=== PATIENT | male | born 1990 | race Caucasian/White ===

== ENCOUNTER 2022-08-11 11:16 | Emergency (ER) | payer MEDICAID, SELFPAY ==
--- NOTE | ~2022-08-11 | US_ITS ---
US abdomen limited 08/11/2022 14:04 Indication: Right upper quadrant pain for 3 months Procedure: High-resolution Limited abdominal ultrasound Comparison: No prior studies for comparison. Findings: The pancreas within normal limits. Liver echotexture is normal without focal mass. Gallblad tom contains stones at the fundus. No gallbladder wall thickening or pericholecystic fluid. No biliar y dilatation. CBD measures 3.5 mm. There is normal directional flow in the portal vein. No sonographi c Salinas's sign. Impression: 1: Gallstones with gallbladder sludge. Reviewed, dictated and finalized at location A. [employer] Impression: 1: Gallstones with gallbladder sludge.
[2022-08-11 11:30] VITALS: BP 123/77; PULSE 66; RESP 16; TEMP 36.6; O2SAT 99
[2022-08-11 12:04] LABS: Basophils Absolute Auto 0.1 K/mm3 (0.0-0.1); Basophils Percent Auto 0.9 % (0.2-1.2); Eosinophils Absolute Auto 0.2 K/mm3 (0-0.3); Eosinophils Percent Auto 2.3 % (0-4.4); Hematocrit 43.7 % (42.0-52.0); Hemoglobin 14.9 g/dL (14.0-18.0); Immature Granulocyte Absolute 0.03 K/mm3 (0.00-0.031); Immature Granulocyte Percent A 0.3 % (0-0.5); Lymphocytes Absolute Auto 1.77 K/mm3 (0.9-3.2); Lymphocytes Percent Auto 17.6 % (18.3-44.2); Mean Corpuscular HGB Conc 34.1 g/dl (32-36); Mean Corpuscular Hemoglobin 28.5 pg (26-34); Mean Corpuscular Volume 83.7 fl (80-100); Mean Platelet Volume 10.3 fl (7.4-10.4); Monocytes Absolute Auto 0.7 K/mm3 (0.1-0.6); Monocytes Percent Auto 7.3 % (2.6-8.5); Neutrophils Absolute Auto 7.2 K/mm3 (1.3-6.7); Neutrophils Percent Auto 71.6 % (45.5-73.1); Platelet Count Result 292 k/mm3 (150-375); Red Blood Count 5.22 M/mm3 (4.6-6.20); Red Cell Distribution Width 12.6 % (11.5-14.5); White Blood Count 10.1 K/mm3 (4.5-10.0)
[2022-08-11 12:10] LABS: Appearance Urine Clear (Clear); Bilirubin Urine 1+ (Negative); Blood Urine Negative (Negative); Color Urine Yellow (Yellow); Glucose Urine UA Negative (Negative); Ketones Urine Trace mg/dL (Negative); Leukocyte Esterase Ur Negative LEU/UL (Negative); Nitrate Urine Negative (Negative); Protein Urine Trace mg/dL (Negative); Specific Grav Ur >= 1.030 (1.001-1.035); Urobilinogen Urine 0.2 mg/dL (<2.0)
[2022-08-11 12:15] LABS: Alanine Aminotransferase 23 U/L (6-50); Albumin Level 4.7 g/dL (3.5-5.1); Alkaline Phosphatase 53 U/L (38-126); Anion Gap 9 mmol/L (8-16); Aspartate Amino Transferase 22 U/L (17-59); Bilirubin,Total 0.9 mg/dL (0.2-1.3); Blood Urea Nitrogen 11 mg/dL (9-20); Calcium 9.4 mg/dL (8.4-10.2); Carbon Dioxide 30 mmol/L (22-30); Chloride 102 mmol/L (98-107); Estimated CRCL calculation 90 ml/min; Estimated Glomerular Filt Rate > 60; Glucose 114 mg/dL (65-110); Lipase 74 U/L (23-300); Mucus Urine Few /lpf; Potassium 4.1 mmol/L (3.4-5.0); RBC Urine 0-2 /hpf (0-2); Sodium 141 mmol/L (137-145); Squamous Epithelial Cell Urine Rare /hpf (Few); WBC Urine 0-3 /hpf
[2022-08-11 12:17] LABS: Add Urine Microscopic? YES
--- NOTE | 2022-08-11 13:05 | ED.ABDPAIN ---
HPI - Abdominal Pain General Chief Complaint: Abdominal Pain Stated Complaint: abd pain, vomiting Time Seen by Provider: 08/11/22 12:52 Source: patient Mode of arrival: ambulatory Limitations: no limitations History of Present Illness HPI narrative: Patient is a 32-year-old male who presents the ED with report of abdominal pain. Patient reports having intermittent right upper quadrant abdominal pain for the last few months. He states pain seems to occur after eating, especially with greasy or fatty foods. He typically experiences nausea and vomiting when the pain occurs. Pain will last for a couple hours before resolving. This morning, patient had a plain bagel and developed severe pain afterwards. He had several episodes of nausea and vomiting this morning, which prompted his presentation. He denies any diarrhea, constipation, urinary symptoms, fever. Related Data Allergies Allergy/AdvReac Type Severity Reaction Status Date / Time No Known Allergies Allergy Verified 08/11/22 11:32 Review of Systems Review of Systems: CONSTITUTIONAL: Denies fever, chills, or sweats. CARDIOVASCULAR: Denies chest pain. RESPIRATORY: Denies dyspnea. GASTROINTESTINAL: Reports right upper quadrant abdominal pain, nausea, vomiting. Denies constipation or diarrhea. GENITOURINARY: Denies dysuria or hematuria. All systems reviewed & are unremarkable except as noted in HPI and below PMFSH Past Medical History Medical History (Updated 08/11/22 @ 14:54 by Joelle Bush PA-C) No pertinent past medical history Surgical History Surgical History (Updated 08/11/22 @ 14:05 by Joelle Bush PA-C) No pertinent past surgical history Social History Social History (Updated 08/11/22 @ 14:05 by Joelle Bush PA-C) Smoking status: Never smoker Exam Narrative: GENERAL: Well appearing, well-nourished, non-toxic, in no acute distress. HEAD: Normocephalic, atraumatic. NECK: Supple. No adenopathy, no masses. RESPIRATORY: Airway patent, respirations nonlabored. Clear to auscultation bilaterally, no rales, rhonchi, wheezing. CARDIOVASCULAR: Regular rate and rhythm without murmurs, rubs, or gallops. Peripheral pulses 2+ and equal bilaterally. ABDOMINAL: Soft, focal tenderness to palpation in epigastric and right upper quadrant abdomen. Nondistended, no hepatosplenomegaly. Normoactive BS. MUSCULOSKELETAL: Moves all extremities. Strength/ROM intact without gross deformities. SKIN: Warm, dry, normal color. No rashes. NEURO: A&O X3. Speech clear. Cranial nerves II-XII grossly intact. Steady gait. No ataxic movements. PSYCHIATRIC: Appropriate mood and affect. Normal interaction. Course Consultations Consultation #1: Discussed case with Dr. Abebe, general surgery, will see patient in office. Emphasized low fat diet. Date: 08/11/22 Vital Signs Vital signs: Vital Signs Temperature 97.9 F 08/11/22 11:30 Pulse Rate 66 08/11/22 11:30 Respiratory Rate 16 08/11/22 11:30 Blood Pressure 123/77 08/11/22 11:30 Pulse Oximetry 99 08/11/22 11:30 Temperature 97.9 F 08/11/22 11:30 Pulse Rate 54 L 08/11/22 13:41 Respiratory Rate 16 08/11/22 11:30 Blood Pressure 115/77 08/11/22 13:41 Pulse Oximetry 97 08/11/22 13:41 MDM - Abdominal Pain MDM Narrative Medical decision making narrative: Patient presented to ED with several month history of intermittent RUQ abdominal pain. Acute worsening today, associated with nausea and vomiting. Vitals stable upon arrival. Afebrile. Minimal leukocytosis of 10.1. Patient did report vomiting this am. Remainder of labs unremarkable. Normal LFTs. UA without signs of infection. RUQ US obtained showing gallstones with gallbladder sludge. No signs of acute cholecystitis at this time. Discussed case with general surgery, will follow patient in office. Advised low-fat diet. No indication for antibiotics at this time. Discussed lab and imaging findings with patient and marlene
[2022-08-11 13:41] VITALS: BP 115/77; PULSE 54; O2SAT 97
[2022-08-11] MEDS: ONDANSETRON INJ 4 MG/2 ML VIAL IV PUSH (14:29)
[2022-08-11] MEDS: MORPHINE SULFATE (*CRX) 4 MG/ML INJ IV PUSH (14:30)
== END 2022-08-11 15:42 | disposition home or self-care (01) ==
PROVIDERS: Emergency Medicine; Emergency Provider Physician Assistant
DX: K80.20 Calculus of gallbladder without cholecystitis without obstruction (principal)
CPT/HCPCS: 36415; 76705; 80053; 81001; 83690; 85025; 96374; 96375; 99284; J2270; J2405

== ENCOUNTER 2022-08-28 08:54 | Outpatient (CLI) | payer MEDICAID, SELFPAY ==
[2022-08-28 09:52] LABS: Alanine Aminotransferase 28 U/L (6-50); Albumin Level 4.5 g/dL (3.5-5.1); Alkaline Phosphatase 50 U/L (38-126); Amylase 95 U/L (30-110); Aspartate Amino Transferase 27 U/L (17-59); Bilirubin,Total 0.6 mg/dL (0.2-1.3); Lipase 87 U/L (23-300)
== END 2022-08-28 08:55 | disposition home or self-care (01) ==
PROVIDERS: Visit Provider Surgery
DX: K80.10 Calculus of gallbladder with chronic cholecystitis without obstruction (principal); Z01.818 Encounter for other preprocedural examination
CPT/HCPCS: 36415; 80076; 82150; 83690; 86850; 86900; 86901

== ENCOUNTER 2022-09-06 00:39 | Day surgery (SDC) | payer MEDICAID, SELFPAY ==
[2022-08-23 09:44] VITALS: BMI 21.0
--- NOTE | 2022-08-23 09:47 | PC.NURSE ---
Addendum entered by Sejal Desouza RN 08/30/22 14:37: PT TO ARRIVE AT 1000 ON 09/06/22 FOR SURGERY AT 1300. Original Note: Report to the Outpatient Waiting Room, entrance under the green pavilion located off [facility], at time 1100 on date 09/07/22. Planned Procedure Time: 1300. Time changes happen often and if your time is changed the preop area will call you the afternoon before. - You and your visitor will be asked to self-screen and do not enter if you have any COVID symptoms. - Only one visitor is requested with a max of two and NO children visitors are allowed at this time. - The patient visitor may be requested to leave or wait in car when not with patient due to distancing restrictions. - A mask is REQUIRED within the hospital. Patients may have clear liquids (water, carbonated beverages, clear teas, apple juice) until 3 hours prior to surgery (1000) with a maximum of 20 ounces. - No food from midnight until time of surgery Take the following medications with a SIP of water the morning of surgery: PAIN PILL IF NEEDED Medications to discontinue per physician: N/A Date to take last dose: N/A Please no make-up, nail nepalese, hairspray, perfume, deodorant, or body powder the day of surgery. No jewelry (including any body piercings) or valuables the day of surgery, leave them at home. Please take a shower or bath the night before, or the morning of, surgery with an antibacterial soap (HIBICLENS). Wear comfortable, loose fitting clothing. - Jewelry must be removed prior to entering the operating room. Rings and piercings that are not removed may be cut off. - The hospital will not accept responsibility for valuables. - Please leave all valuables, including medications, at home the day of surgery. If you are going home after surgery, a licensed trailer driver must drive you home. - NO public transportation without another adult if you receive anesthesia. - We recommend that an adult stay with you for 24 hours following discharge. - We also recommend that you do not drive, make important decision, drink alcoholic beverages, or take any drugs that were not prescribed by your health care provider for at least 24 hours after your discharge time. Follow any additional instructions given to you from your surgeon. If you or anyone in your household have experienced Covid symptoms in the past week, please notify your surgeon or the nurse liaison at the phone number below for possible testing. Telephone instructions given to MAURILIO WISDOM and asked if any additional questions and then verbalized understanding. Patient advised to call surgeon office or pre surgery nurse liaison [phone] if any additional questions.
--- NOTE | 2022-08-30 14:37 | PC.NURSE ---
Pt states no changes in health history or medications since initial interview. New pre-op instructions reviewed with pt. Pt denies further questions at this time.
[2022-09-06] VITALS (8 sets, daily range): BP systolic 112–133; BP diastolic 62–77; PULSE 57–90; RESP 14–18; TEMP 36–36.6; O2SAT 97–100
--- NOTE | 2022-09-06 11:39 | WPDHPUPDATE1 ---
History and Physical Update Update Date/Time: 09/06/22 11:39 History and Physical has been reviewed, including an updated exam of the patient. There are NO changes in the patient's condition. Risks, benefits, and alternatives have been discussed and questions answered. Patient agrees to proceed with procedure.
[2022-09-06] MEDS: KETOROLAC 15 MG/ML VIAL (*BKC) IV PUSH (12:06)
[2022-09-06] MEDS: ACETAMINOPHEN 500 MG TABLET 1000 MG PO (12:06)
--- NOTE | 2022-09-06 12:27 | P.PNAN_ITS ---
Anes - Initial Pre Proc Eval Procedure: Operation Date: 09/06/22 13:00 Proposed Procedures p Laparoscopic Cholecystectomy - Sudhir Abebe MD Date/Time: 09/06/22 12:27 Surgeon: Sudhir Abebe MD Pre Op Diagnosis: chronic cholecystitis with stones Patient Data Age: 32 Gender: M Height: 1.83 m Weight: 70.65 kg Allergies Allergy/AdvReac Type Severity Reaction Status Date / Time No Known Allergies Allergy Verified 09/06/22 11:16 Home Medications Medication Instructions Recorded Confirmed Type hydrocodone 5 mg-acetaminophen 325 1 - 2 tablet PO Q6H PRN pain #15 09/06/22 Rx mg tablet tabs ketorolac 10 mg tablet 10 mg PO Q6H 4 days #16 tabs 09/06/22 Rx Patient hx anesthesia problems: none Family hx anesthesia problems: none Results Review: All pre-operative results and documents have been reviewed as part of the pre- operative evaluation. PMFSH Past Medical History Medical History No pertinent past medical history Surgical History Surgical History Hx of shoulder surgery Right No pertinent past surgical history Social History Social History Smoking status: Current every day smoker Tobacco type: e-cigarettes/vaping Alcohol intake: current Alcohol use details: RARE Substance use: never Substance use type: does not use Living arrangements: alone Spiritual care concerns: No Anes - Eval Final PreProcedure Day of Procedure 09/06/22 12:27 Patient weight: normal Heart: regular rate and rhythm Lungs: decreased breath sounds Airway: Mallampati scale class II Neurological: alert and oriented Last oral intake: >/= 8 hours ASA classification: II Emergent: no Anesthetic plan: proceed Anesthesia type and monitoring: general ETT and standard monitoring Results Review: All pre-operative results and documents have been reviewed as part of the pre- operative evaluation. Informed Consent: The patient's anesthetic plan and its attendant risks and benefits were discussed with the patient/family/POA. Questions were solicited and answers provided to the satisfaction of the patient/family/POA.
[2022-09-06] MEDS: LACTATED RINGERS 1,000 ML 30 ML IV CONT ×2 (12:30→15:12)
--- NOTE | 2022-09-06 13:30 | SUR.PREOP ---
PATIENT UPDATED ON TIME DELAY
[2022-09-06] MEDS: ceFAZolin 2 GM/D5W 50 ML 2 GM/50 ML BAG IVPB (14:05)
[2022-09-06] MEDS: BUPIVACAINE/EPINEPHRINE 0.5% 30 ML VIAL INFILTRATE (14:09)
--- NOTE | 2022-09-06 14:47 | W.PM.PROC2 ---
Procedure Note - Detailed Date of Procedure 09/06/22 Pre-op Diagnosis chronic cholecystitis with stones Post-op Diagnosis Same Procedure Performed Laparoscopic cholecystectomy Surgeon Sudhir Abebe MD [employer] Stacie Abreu [facility] Anesthesia General and Local (0.5% Marcaine with epinephrine) Indications Patient has been experiencing postprandial right upper quadrant abdominal pain, particularly after eating fatty foods. Gallbladder ultrasound was done and showed gallstones and sludge. He is taken to surgery now for laparoscopic cholecystectomy Findings Chronic inflammation and gallstones were noted. No liver abnormalities or biliary ductal dilatation were appreciated. Description of Procedure Patient was taken to surgery and induced into general anesthesia. The abdomen is prepped and draped. Trocars were placed in usual fashion using applied Medical optical trocars and local anesthetic. The gallbladder was retracted anterosuperiorly. Dissection was carried out in the cholecystohepatic triangle. The cystic duct and cystic artery dissected out clearly. Gallbladder was dissected off the liver its lower 3rd. Critical view was achieved. The cystic duct and cystic artery were then securely clipped and divided. Gallbladder was dissected free of its remaining peritoneal attachments to the liver. It was placed in an Endo-Catch bag and retrieved through the 10 11 epigastric trocar site. I had to dilate the epigastric trocar site to accommodate the gallbladder with its multiple stones and slightly thickened wall. I then replaced the epigastric trocar. We reviewed the right upper quadrant. Irrigation and suctioning were carried out. Some additional cautery on the gallbladder fossa was carried out. I repeatedly irrigated and suctioned the area. All looked good with no evidence of bleeding or bile leak. We then evacuated CO2 and removed the trocar sleeves. The fascia at the epigastric trocar site was closed with 0 Vicryl suture. The subcu was closed with subcuticular 3-0 Vicryl suture. All skin wounds were closed with 4-0 Monocryl skin suture. The wounds were dressed with Exofin surgical adhesive. Patient was awakened taken to recovery in good condition. Sponge needle counts were correct x2. Estimated Blood Loss -10 Drains No Packing No Pathology Yes Complications No immediate complications Condition Stable Disposition PACU [facility] Billing Surgery - Charge Forward: Surgery Billing (Laparoscopic cholecystectomy)
[2022-09-06] MEDS: oxyCODONE HCL (*CRX) 5 MG TAB IR PO (16:29)
== END 2022-09-06 17:10 | disposition home or self-care (01) ==
PROVIDERS: Visit Provider Surgery
PROC: 0FT44ZZ Resection of Gallbladder, Percutaneous Endoscopic Approach (ICD-10-PCS; CPT 47562; principal; 2022-09-06 13:00)
DX: K80.10 Calculus of gallbladder with chronic cholecystitis without obstruction (principal); F17.290 Nicotine dependence, other tobacco product, uncomplicated
CPT/HCPCS: 47562; 88304; A9270; C1713; J0690; J1100; J1170; J1885; J2250; J2405; J2704; J2710; J3010; J7030; J7120